=== PATIENT | male | born 1955 | race Caucasian/White ===

== ENCOUNTER 2016-05-03 17:09 | Inpatient (IN) | payer MEDICARE, OTHER ==
[~2016-05-03] VITALS: Ht 177.8 cm; Wt 115.8 kg
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
--- NOTE | ~2016-05-03 | WND ---
ADMIT: 05/03/2016 RM/LOC: 523 [facility] MR#: [id number] [address] [address] EBNOY BILLY [address] [address] [facility] SEX: M AGE: 60 : 1955 DATE OF VISIT: 05/09/2016 TIME IN: 1005 hours. TIME OUT: 1015 hours. REASON FOR VISIT: Evaluation and treatment of a right heel blister. HISTORY OF PRESENT ILLNESS: This is a 60-year-old male, who was first seen by [facility] when he was an inpatient at [facility] on 05/04/2016. He has a history of head and neck cancer. He has had chemotherapy in the past. He is currently on immunotherapy. He was admitted with a cough that is productive, shortness of breath, and edema. Family members had noted that he had a blister on his right heel that was present for 2-3 days. It had occurred suddenly overnight. He was diagnosed with a stage II pressure ulceration, right heel. Mepilex border was applied along with EdemaWear and Heelift boots. He was also placed on low air loss mattress and chair air cushion because of this thin body habitus and increased risk of skin breakdown. He is examined today for re-evaluation of the right heel blister. REVIEW OF SYSTEMS: He is examined in his hospital room where he is awake, alert, and oriented x3. He is on a low air loss mattress. He does have his Heelift boot in place along with his EdemaWear. He states he is feeling better overall. He states his appetite has improved. No recent fever or chills. No nausea or vomiting. Occasional cough. No chest pain. He has no pain in his heel. He says overall, he does have pain in his back that he rates as a 5. PHYSICAL EXAMINATION: VITAL SIGNS: 97.5, 91, 18, blood pressure 114/77, O2 saturation on room air is 94%. Focused exam to the right lower extremity shows foot circumference is 24 cm, ankle is 20 cm, and calf 20 cm, malleolus is 25 cm. No edema noted. His toes are warm to touch with quick capillary refill. On his posterior heel is his blister that remains 2 x 2.5 cm. It is not as tense with serous fluid as it ADMIT: 05/03/2016 RM/LOC: 523 [facility] MR#: [id number] [address] [address] EBONY BILLY [address] [place] [address] W[facility] Care Clinic SEX: M AGE: 60 : 1955 was previously. There is no surrounding erythema or induration. ASSESSMENT: Stage II pressure ulceration, right posterior heel. TREATMENT PLAN: The area was cleansed well with sterile saline and patted dry. The remaining fluid was expressed from the bulla leaving the epithelium intact. After this, a Mepilex border was applied along with size small EdemaWear and his Heelift boots. He is getting ready to be discharged to alf unit at [facility]. We will continue with the current orders of low air loss mattress, chair air cushion, Heelift boots. Thank you for this referral and allowing us to care for this gentleman. Dali Alejandra APRN/ samia JOB #: [id number] CC: Juan Daniel Puente MD, Attending Physician Juan Daniel Puente MD, Family Physician
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
[2016-05-16] MEDS ORDERED: NEURONTIN300 MG PO (11:08)
[2016-05-16] MEDS ORDERED: RELPAX40 MG PO (11:09)
[2016-05-16] MEDS ORDERED: PEPCID DPS20 MG PO (11:09)
[2016-05-16] MEDS ORDERED: DILAUDID2 MG PO (11:09)
[2016-05-16] MEDS ORDERED: MILK OF MAGNESI10 ML PO (11:09)
[2016-05-16] MEDS ORDERED: LEVOTHYROXINE200 MCG PO (11:09)
[2016-05-16] MEDS ORDERED: ATIVAN-DPS0.5 MG PO (11:10)
[2016-05-16] MEDS ORDERED: BENADRYL-DPS25 MG PO (11:10)
[2016-05-16] MEDS ORDERED: MIRALAX PACKET17 GM PO (11:11)
[2016-05-16] MEDS ORDERED: MAALOX DPS30 ML PO (11:11)
--- NOTE | 2016-06-05 11:46 | HP ---
ADMIT: 05/03/2016 RM/LOC: 523 [facility] MR#: [id number] 2620 [facility] [address] [place] [id number] EBONY BILLY [address] [place] [address] History and Physical SEX: M AGE: 60 : 1955 DATE OF SERVICE: CHIEF COMPLAINT: 1. Confusion. 2. Dehydration and weakness. CLINICAL HISTORY: Ebony Billy is a patient with head and neck malignancy, metastatic to spine and other areas. He specifically has had thoracic spine disease, which has been treated with radiation therapy and has undergone chemotherapy as well. Unfortunately in February of 2016, this disease was seen to be progressive and treatment changes were made. Over the last 3-4 days, he has had increasing lethargy. He has fallen. He cannot get out of bed. He is in the wheelchair and cannot get out of it, cannot stand up and reach on taller. Son states that he has been confused at intervals but at other times, he is lucid. He has had an unrelenting cough. He is existing on Ensure 2-3 times per day but has no other oral intakes of significance. They are not sure about whether he has voided or whether his bowels have moved. He is on OxyContin for pain control and used oxycodone for breakthrough pain. PAST MEDICAL HISTORY: Includes original head and neck carcinoma, this was a poorly-differentiated cancer of the right tonsil. He underwent surgical removal after initial evaluation but unfortunately 1 year later had metastatic disease. ALLERGIES: NONE KNOWN. MEDICATIONS: Previously was taking thyroid but quit such. He has not had any other specific medication needs and what he has taken for nausea has not really helped. He has not had any vomiting. REVIEW OF SYSTEMS: Extensive review of systems is otherwise negative except for persistent distal and proximal thoracic level pain. He describes no neurological weakness, numbness, or signs of cord impingement. PHYSICAL EXAMINATION: GENERAL: Reveals a very thin cachectic individual. He has radiation dermatitis. He is edentulous and dehydrated without obvious intraoral infection. He has a few shotty hard lymph nodes on the right side of the neck where he had his dissection and prior radiation. LUNGS: Show rales on the right side, consistent with pneumonia. HEART: Regular without findings. ABDOMEN: Scaphoid. Old scars from G-tube placement. EXTREMITIES: Otherwise unremarkable. Obvious mobile severe weakness with 2+ pedal edema. LABORATORY: Shows elevated white count, slight increase in sodium consistent with dehydration and possible pneumonia. ADMIT: 05/03/2016 RM/LOC: 523 [facility] MR#: [id number] [facility] [address] EBONY BILLY [address] [place] [address] History and Physical SEX: M AGE: 60 : 1955 Calcium is acceptable. IMPRESSION: 1. Pneumonia. 2. Dehydration. 3. Advanced malignancy. 4. Back pain secondary to thoracic spine tumor. 5. History of poorly-differentiated carcinoma of the right tonsil, status post chemotherapy and radiation therapy. 6. Pedal edema without evident deep-vein thrombosis treatment. PLAN: He needs fluids but he also needs antibiotics and pain control, all of which will be undertaken as carefully as possible. It is not clear whether restaging at this point is likely to change the treatment with the exception that if new spinal lesions or progressive spinal lesions threatened his spinal cord, may be a consideration for alternative therapies to include Zometa etc. Overall prognosis is extremely poor and he had his family are leaning toward hospice therapy. They are realistic about the outcome in the near future. Juan Daniel Puente MD/ samia JOB #: [id number] CC: Juan Daniel Puente, Attending Physician Juan Daniel Puente, Family Physician Ravinder Braden MD
--- NOTE | 2016-07-18 13:08 | DS ---
ADMIT: 05/03/2016 RM/LOC: [address] [facility] MR#: [id number] [address] [id number] EBONY BILLY [address] [id number] Discharge Summary SEX: M AGE: 60 : 1955 ADMISSION DATE: 05/03/2016 DISCHARGE DATE: 05/09/2016 DISMISSAL DIAGNOSES: 1. Confusion. 2. Dehydration and weakness. 3. Malnutrition. 4. Hypokalemia. 5. Hypercalcemia. CLINICAL HISTORY: Ebony was admitted weak, unable to get out of the wheelchair with increasing cough, some significant increase in swallowing. 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 He has pulmonary metastasis as well. He came in for hydration, nutrition, pain control and possible pneumonia. He had mild hypercalcemia of malignancy, and developing pneumonia in the right base. This ultimately improved as did hydration, mentation, pain control. He did prove intolerant to morphine and previously had a history of untoward reaction and nausea to morphine. Adjustments in pain medication were undertaken, antibiotics were used, his pneumonia improved. Wound Care, Oncology, and [facility] [place] were enjoined for their assistance, and re- evaluation of his tumor burden was undertaken with split interpretations. One from Radiology would suggest instability, and a second one from Dr. Ravinder Braden, his oncologist, that clearly felt there was progression in-spite of appropriate treatment. This was consistent with his clinical course. Ultimately, he was dismissed to skilled care to continue antibiotics for an additional 48 hours and replace potassium, etc. He was given a dose of Zometa x1 to help control hypercalcemia. He and the family are discussing hospice and hospice services, and we will follow him at skilled care on an as-needed basis, but planned to return him home with family assistance post pneumonia when pain control is better achieved. Juan Daniel Puente MD/ samia JOB #: [id number] CC: Juan Daniel Puente MD, Attending Physician Juan Daniel Puente MD, Family Physician Ravinder Braden MD
== END 2016-05-09 11:18 | DRG 194 ==
LOC: 5MS 17:09
PROVIDERS: ADMIT Internal Medicine
DX: J18.9 Pneumonia, unspecified organism (principal); C79.51 Secondary malignant neoplasm of bone; C78.00 Secondary malignant neoplasm of unspecified lung; E46 Unspecified protein-calorie malnutrition; L89.612 Pressure ulcer of right heel, stage 2; E83.52 Hypercalcemia; R44.3 Hallucinations, unspecified; E87.6 Hypokalemia; E86.0 Dehydration; L59.8 Other specified disorders of the skin and subcutaneous tissue related to radiation; K14.0 Glossitis; G89.3 Neoplasm related pain (acute) (chronic); G43.909 Migraine, unspecified, not intractable, without status migrainosus; E03.9 Hypothyroidism, unspecified; Z85.89 Personal history of malignant neoplasm of other organs and systems; Z66 Do not resuscitate

== ENCOUNTER 2016-05-08 10:25 | Inpatient (IN) | payer MEDICARE, OTHER ==
[~2016-05-08] VITALS: Ht 177.8 cm; Wt 53.7 kg
--- NOTE | 2016-05-09 14:26 | NUR ---
MDS 3.0-ADMISSION/SHORT INTERVIEW: PT. IS ALERT, ORIENTED X 3. PT. IS SOMEWHAT FORGETFUL AND WILL SAY HE JUST CAN'T REMEMBER. PT. DRIFTS OFF DURING ADMISSION, WITHIN A FEW SECONDS, ANSWERS WERE HE LEFT OFF. STATES HE IS TIRED BUT WHEN ASKED ABOUT SLEEPING, STATES "OH I WON'T GO TO SLEEP ANYWAY", THEN STATES HE HASEN'T SLEPT VERY WELL IN DAYS. [place], WANTS TO RETURN HOME ONCE HE IS STRONGER, WITH MORE MOBILITY HE STATES. HAS HORSES AT HOME AND STATES HE MISSES HIS ANIMALS. STATES WHEN HE GOES HOME HE WILL HAVE HELP IN THE HOME, STATES HE HAS ALOT OF PEOPLE WHO WILL BE THERE TO HELP HIM. STATES HIS PAIN IS CONSTANT AT A 5, STATES ITS HIS BACK AND THAT TODAY ITS MOSTLY IN THE RT SIDE OF HIS BACK. STATES HE HAS CLASSIC MIGRAINE HEADACHES. SEVERAL OF HIS TEETH ARE MISSING, WHAT IS LEFT IS IN POOR CONDITION, STATES THATS FROM HIS CANCER AND STATES HIS MOUTH IS SORE AND HAS SKYLA'S MAGIC THAT HE TAKES WHEN HE NEEDS. DTR CESARIO IS HIS POA, DOES NOT WANT TO DISCUSS THE ADVANCE DIRECTIVE UNTIL CESARIO IS HERE AND THEN STATES HIS WHOLE FAMILY. PRESENT ON ADMISSION IS HIS GRANDSON AJ. WISHED HIM A GOOD REST OF THE DAY AND GLAD HE HAD CAME TO [facility].
--- NOTE | 2016-05-09 17:31 | NUR ---
Don was asking about a shower as he hasnt had one in a couple days. It was brought up that a staff member would have to be present during his shower, and he became very upset, saying that it is an invasion of his privacy, and what bullsh. He then asked about therapy having to do a home check, and was told that i wasnt sure but I could ask. Again he became very upset saying its an invasion of privacy, and he'd become very irate if that happened. Daughter was present and was trying to calm down.
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
--- NOTE | 2016-05-10 00:24 | NUR ---
PT REQUESTED MED TO "HELP ME RELAX" RN HAD PREVIOUSLY DISCUSSED PRN ATIVAN WITH DR. CELESTE, WITH NO INDICATION IT SHOULD NOT BE GIVEN. GAVE MED FOR ANXIETY PER PT REQUEST; STATES "WAY TO TRICK ME I CAN'T TAKE THAT IT WILL MAKE ME SLEEP AND WHAT WILL I MISS" ASSURED PT THAT MED WAS ORDERED MY PCP AND HE WAS AWARE OF THE DOSE; PT STATES "DILCIA DOESN'T KNOW WHAT IT DOES TO ME", PER PT INC FATIGUE ONLY; ASSURED PT WE WOULD CHECK ON HIM FREQUENTLY AND THAT THE AM MEDS NEXT SCHEDULED AT 0445; 0045 MED GIVEN SO NOT TO DISTURB PT IF HE DOES FALL ASLEEP WITH FAX MD ON PT REQUEST NOT TO BE GIVEN ATIVAN IN THE FURTURE AFTER AN EVALUATION IS DONE ON EFFECTS OF THIS MED DURING THE NIGHT.
--- NOTE | 2016-05-10 03:28 | NUR ---
PT CONTINUES TO REST EYES CLOSED; RESP EVEN, FREQUENT CHECKS.
--- NOTE | 2016-05-10 22:41 | NUR ---
FAMILY MEMBERS BROUGHT IN FOOD FOR PT; PT OFFERS FOOD TO RN AND INDUSTRIAL MAINTENANCE MILLWRIGHT; FOUND PT TO BE PUTTING HIS FOOD IN THE DRAWER TO THE OVERBED TABLE;INDUSTRIAL MAINTENANCE MILLWRIGHT ATTEMPTED TO STOP PT; I ALLOWED AND WILL REMOVE WHEN PT ASLEEP R/T LABILE MOODS.
--- NOTE | 2016-05-15 15:44 | NUR ---
PATIENT NOTE EBONY HAS BEEN D/C TO HIS HOME PER HIS AND FAMILIES REQUEST. DR. CELESTE AGREED THAT THIS WOULD BE BEST FOR EBONY AND GAVE D/C ORDERS. PER DON AND FAMILIES REQUEST I CONTACTED [facility] WHO WILL START SERVICES TODAY AT 3:30. A HOSPITAL BED WILL ALSO BE DELIVERED TODAY. CESARIO WAS HERE THROUGHOUT THE DAY AND TRANSPORTED HIM HOME. FAMILY WILL BE EBONY'S PRIMARY CAREGIVERS. EBONY CAME TO [facility] FOR SHORT TERM REHAB. HE WAS HERE UNDER HIS MEDICARE BENEFTIS WITH [employer] THE SKILLED SERVICE. CESARIO AND EBONY WERE AWARE OF THE THERAPY GOAL DATE 05/25 AND ALTHOUGH THEY WERE APPRECIATIVE OF THE TIME THEY DID NOT FEEL IT WAS NEEDED. D/C ORDERS AND UPDATED INFORMATION WAS FAXED TO DIANA AT [facility].
[2016-05-16] MEDS ORDERED: NEURONTIN300 MG PO (11:08)
[2016-05-16] MEDS ORDERED: RELPAX40 MG PO (11:09)
[2016-05-16] MEDS ORDERED: MILK OF MAGNESI10 ML PO (11:09)
[2016-05-16] MEDS ORDERED: LEVOTHYROXINE200 MCG PO (11:09)
[2016-05-16] MEDS ORDERED: PEPCID DPS20 MG PO (11:09)
[2016-05-16] MEDS ORDERED: DILAUDID2 MG PO (11:09)
[2016-05-16] MEDS ORDERED: BENADRYL-DPS25 MG PO (11:10)
[2016-05-16] MEDS ORDERED: ATIVAN-DPS0.5 MG PO (11:10)
[2016-05-16] MEDS ORDERED: MAALOX DPS30 ML PO (11:11)
[2016-05-16] MEDS ORDERED: MIRALAX PACKET17 GM PO (11:11)
== END 2016-05-15 14:30 | disposition hospice, home (50) | DRG 194 ==
LOC: SNU 10:25
PROVIDERS: ADMIT Internal Medicine
PROC: F07M3ZZ Motor Function Treatment of Musculoskeletal System - Whole Body (ICD-10-PCS; principal; 2016-05-09)
PROC: F08Z4ZZ Home Management Treatment (ICD-10-PCS; principal; 2016-05-09)
DX: J18.9 Pneumonia, unspecified organism (principal); E46 Unspecified protein-calorie malnutrition; C79.51 Secondary malignant neoplasm of bone; E83.52 Hypercalcemia; L89.612 Pressure ulcer of right heel, stage 2; Z68.1 Body mass index [BMI] 19.9 or less, adult; Z11.1 Encounter for screening for respiratory tuberculosis; G89.29 Other chronic pain; E03.9 Hypothyroidism, unspecified; Z66 Do not resuscitate; Z85.89 Personal history of malignant neoplasm of other organs and systems; R41.0 Disorientation, unspecified